=== PATIENT | female | born 1985 | race Caucasian/White ===

== ENCOUNTER 2023-11-11 02:36 | Emergency (ER) | payer BC, SELFPAY ==
[2023-11-11 02:48] VITALS: BP 127/84
[2023-11-11 03:38] VITALS: BMI 34.5
--- NOTE | 2023-11-11 03:41 | EDRN ---
Three rings on left third digit, unable to remove wrings, multiple attempts made, patient requested to cut rings to remove. Three rings cut through the band, no stones damaged, rings handed to .
--- NOTE | 2023-11-11 03:46 | ED.GENMED ---
History of Present Illness
General
Chief Complaint: Skin Surface Trauma
Source: patient and spouse
Exam Limitations: none
Time Seen by Provider: 11/11/23 03:44
Nursing documentation reviewed up to this point in time: agreed with
History of Present Illness
History of Present Illness:
This is a 37-year-old woman 3 para 2, currently 38 weeks who complains of swelling to her fingers and inability to remove her wedding rings from her her left ring finger.
She denies pain but does admit to mild swelling of her digits. No shortness of breath, no cough, no chest pain. She denies swelling to her lower extremities.
thus far has been uneventful.
Past History
Past History
ED Past Medical History: Other (EDS, Plt abnormality)
ED Past Surgical History: (X 2) and Tonsilectomy
Social History
Tobacco: Non-smoker
Alcohol: None
Personal:
Living: with family
Family History
Family History: Other (Noncontributory)
Phy Exam
Physical Exam
Physical Exam:
GENERAL: 37-year-old woman appears her stated age, bright and alert, pleasant, appears in no acute distress.
EYE: anicteric
NECK: Supple, nontender, no significant adenopathy.
ENT: oral mucosa is moist. No rhinorrhea.
CARDIAC: Regular rate and rhythm. no murmur.
LUNGS: Clear breath sounds bilaterally, no acute respiratory distress, no wheezes/rales/rhonchi
ABDOMEN: Gravid, nontender, soft, nondistended
NEUROLOGICAL: Alert and oriented x3, no focal neuro deficits. Gait is russo and steady.
SKIN: Warm and dry, normal color, skin intact. No rash.
MUSCULOSKELETAL: There is no clubbing or cyanosis. No peripheral edema of the lower extremities. There is mild soft tissue swelling mid to distal aspect of the left ring digit. All other digits without edema. Full range of motion without
difficulty nor pain. Peripheral pulses are full and equal b/l. No palpable tenderness.
PSYCH: Normal and appropriate interaction.
Course
Vital Signs
Initial and Last Documented VS:
Initial Vital Signs
Temp Pulse Resp BP Pulse Ox
98.3 F 75 20 127/84 98
11/11/23 02:48 11/11/23 02:48 11/11/23 02:48 11/11/23 02:48 11/11/23 02:48
Last Documented Vital Signs
Temp Pulse Resp BP Pulse Ox
98.3 F 75 20 127/84 98
11/11/23 02:48 11/11/23 02:48 11/11/23 02:48 11/11/23 02:48 11/11/23 02:48
MDM/Problems Addressed
Differential Diagnosis Includes:
38-week female presents with inability to remove her wedding rings from her left ring digit with focal edema of her left ring digit.
Ring successfully removed by ED nurse with ring cutter.
Post removal. Patient has mild residual edema primarily mid aspect of her left ring digit. There is no erythema, no abrasion, skin remains intact.
We did discuss that a jeweler can repair her ring.
Recommend she avoid wearing her wedding rings until a week or 2 after she delivers.
*Pulse Oximetry
Patient hypoxic: no
*Critical Care Note
Total Time (30-74mins, 75-104mins- exclusive of procedures): Not Applicable
ED Attending Note
-
Portions of this chart may have been created with voice recognition software.� Occasional wrong word or��sound alike� substitutions may have occurred due to the inherent limitations of voice recognition software.
Discharge Plan
Departure
Patient Disposition: Home (Routine Discharge)
Date of Disposition: 11/11/23
Time of Disposition: 03:46
Patient with high blood pressure during this ER visit?: No
Condition: Good
Discharge Problem:
encounter for metal ring removal, digit edema r/t
Instructions: Swelling
Prescriptions:
No Action
ondansetron 4 MG tablet,disintegrating
4 mg PO TIDPRN PRN (Reason: nausea/vomiting) Qty: 6 0RF
Referrals:
Selwyn Christianson MD [Family Provider] - As needed
Interventions
Interventions:
*Risk Screen - Suicide Last Done: 11/11/23 02:48
*General Assessment Last Done: 11/11/23 02:48
*Neglect/Abuse Screening Last Done: 11/11/23 02:48
ED- Fall Risk Assessment Last Done: 11/11/23 02:48
*ED COVID-19 Vaccine History Last Done: 11/11/23 02:48
ED-Skin Assessment Last Done: 11/11/23 03:39
Discharge Date and Time
Print Language: ANGUILLAN
== END 2023-11-11 04:00 | disposition home or self-care (01) ==
LOC: EMR 02:36
PROVIDERS: EMERGENCY PHYSICIAN Emergency Medicine; FAMILY PHYSICIAN Internal Medicine
DX: O99.891 Other specified diseases and conditions complicating pregnancy (principal); R60.9 Edema, unspecified; Z3A.38 38 weeks gestation of pregnancy
CPT/HCPCS: 99282